=== PATIENT | female | born 1990 | race Caucasian/White ===

== ENCOUNTER 2018-12-07 08:56 | Outpatient (CLI) | payer OTHER | END 2018-12-07 17:00 | disposition home or self-care (01) | LOC: RX STUDY 08:56 | DX: R10.2 Pelvic and perineal pain (principal) ==

== ENCOUNTER 2020-11-14 06:26 | Inpatient (IN) | payer OTHER ==
[~2020-11-14] VITALS: Ht 160 cm; Wt 73.5 kg
[2020-11-14] MEDS ORDERED: PRENATAL + DHA1 EAC1 PO (10:37)
== END 2020-11-16 13:02 | disposition home or self-care (01) | DRG 807 ==
LOC: LDR 06:26 → OB/GYN 06:26
PROVIDERS: ADMIT Obstetrics & Gynecology; ATTEND Obstetrics & Gynecology
PROC: 10E0XZZ Delivery of Products of Conception, External Approach (ICD-10-PCS; principal; 2020-11-14)
PROC: 0W8NXZZ Division of Female Perineum, External Approach (ICD-10-PCS; 2020-11-14)
PROC: 4A1HXFZ Monitoring of Products of Conception, Cardiac Rhythm, External Approach (ICD-10-PCS; 2020-11-14)
DX: O80 Encounter for full-term uncomplicated delivery (principal); Z37.0 Single live birth; Z3A.39 39 weeks gestation of pregnancy; Z20.822 Contact with and (suspected) exposure to COVID-19